=== PATIENT | female | born 1975 | race Caucasian/White ===

== ENCOUNTER 2016-09-01 08:45 | Day surgery (SDC) | payer BC ==
[~2016-09-01] VITALS: Ht 167.6 cm; Wt 66.2 kg
[2016-09-01] VITALS (7 sets, daily range): BP systolic 111–123; BP diastolic 76–93; PULSE 67–95; TEMP 97.2–97.4
[~2016-09-01 08:45] MED LIST: COZAAR100 MG PO; LIPITOR 10MG10 MG PO
== END 2016-09-01 12:30 | disposition home or self-care (01) ==
LOC: SDCO 08:45
DX: Z12.31 Encounter for screening mammogram for malignant neoplasm of breast (principal); D12.5 Benign neoplasm of sigmoid colon; K52.9 Noninfective gastroenteritis and colitis, unspecified; K63.3 Ulcer of intestine; Z83.71 Family history of colonic polyps; I10 Essential (primary) hypertension; E78.00 Pure hypercholesterolemia, unspecified; Z79.899 Other long term (current) drug therapy
CPT/HCPCS: J2250; J2405; J3010; J7030

== ENCOUNTER → 2016-11-09 | Outpatient (CLI) | payer BC | LOC: COL.LAB 13:22 | DX: K50.90 Crohn's disease, unspecified, without complications (principal) ==